=== PATIENT | female | born 1965 | race Caucasian/White ===

== ENCOUNTER 2020-04-25 11:47 | Emergency (ER) | payer BC, SELFPAY ==
[2020-04-25 12:01] VITALS: BP 149/90; PULSE 72; RESP 18; TEMP 37; O2SAT 94
--- NOTE | 2020-04-25 12:07 | ED.SKABFB ---
HPI - Skin/Abscess/Foreign Bdy General Chief complaint: Skin/Abscess/Foreign Body Stated complaint: insect bite Time Seen by Provider: 04/25/20 12:07 Source: patient and family Mode of arrival: ambulatory Limitations: no limitations History of Present Illness HPI narrative: This is a 54 years old female presented to the office for an evaluation of possible infected insect bite on her left thumb. She was outside and felt a bite on her finger but she did not see it. She has stretched it and noticed it blistering today. It also produces yellow drainage. She is diabetic. No treatment prior to arrival. Td is up-to-date Related Data Home Medications Medication Instructions Recorded Confirmed atorvastatin [Lipitor] 40 mg PO DAILY 04/25/20 04/25/20 lisinopril-hydrochlorothiazide 1 tablet PO DAILY 04/25/20 04/25/20 [Zestoretic] metformin [Glucophage] 500 mg PO BID 04/25/20 04/25/20 Allergies Allergy/AdvReac Type Severity Reaction Status Date / Time No Known Allergies Allergy Verified 04/25/20 12:08 Review of Systems Review of Systems: Narrative: CONSTITUTIONAL: Denies fever or feeling ill CARDIOVASCULAR: Denies chest pain RESPIRATORY: Denies dyspnea GASTROINTESTINAL: Denies abdominal pain, nausea, vomiting SKIN: Reports blister on her left thumb with redness, warmth and pain MUSCULOSKELETAL: Denies any other extremities pain NEUROLOGIC: Denies lightheaded/numbness PMFSH Past Medical History Medical History (Updated 04/25/20 @ 12:18 by MALATHI Hernandez) Diabetes mellitus, type II HLD (hyperlipidemia) HTN (hypertension) Social History Social History (Updated 04/25/20 @ 12:07 by MALATHI Hernandez) Smoking status: Current every day smoker Gender identity (if verbalized by the patient): Female Comments At time of signature, I agree with nursing past medical, surgical, social and family history. There is no relevant family history pertinent to the presenting complaint. Exam Narrative: Exam Narrative: GENERAL: This is a well-nourished, well-developed patient, in no apparent distress. CARDIOVASCULAR: Regular rate and rhythm without murmurs, gallops, or rubs. RESPIRATORY: Clear to auscultation. Breath sounds equal bilaterally. No wheezes, rales, or rhonchi. GASTROINTESTINAL: Abdomen soft, non-tender, nondistended. Bowel sounds are active. No hepato-splenomegaly, or palpable masses. No guarding. SKIN: warm, intact with no suspicious lesions or rash, good texture and turgor. NEURO: awake, alert, and oriented to person, place and time. There were no obvious focal neurologic abnormalities. Steady gait EXTREMITIES: left dorsal at DIP of phalange noted blister ~1.5cm round with generalize erythema and edematous down her hand. Radius pulse intact. Wound cleaned and dress with neosporin, gauze and tape until she gets home; then I told her to remove it. [place] Coma Scale Eye Opening: Spontaneous 4 Laura Coma Scale Motor: Obeys Commands 6 Laura Coma Scale Verbal: Oriented 5 Course Vital Signs Vital signs: Vital Signs Temperature 98.6 F 04/25/20 12:01 Pulse Rate 72 04/25/20 12:01 Respiratory Rate 18 04/25/20 12:01 Blood Pressure 149/90 H 04/25/20 12:01 Pulse Oximetry 94 04/25/20 12:01 Temperature 98.6 F 04/25/20 12:01 Pulse Rate 72 04/25/20 12:01 Respiratory Rate 18 04/25/20 12:01 Blood Pressure 149/90 H 04/25/20 12:01 Pulse Oximetry 94 04/25/20 12:01 MDM - Skin/Abscess/Foreign Bdy MDM Narrative Medical decision making narrative: Elevated BP noted: I recommend the patient call the primary care provider listed on their discharge instructions this week to arrange follow-up to recheck her blood pressure in 2 week. Discharge instructions reviewed with patient, as well as provided in writing per nursing staff. The instructions also include specific and strict return/GO TO THE ER as well as f/u information. All questions have been answered, and the patient d
== END 2020-04-25 12:21 | disposition home or self-care (01) ==
PROVIDERS: Emergency Provider Nurse Practitioner
DX: S60.362A Insect bite (nonvenomous) of left thumb, initial encounter (principal); E11.9 Type 2 diabetes mellitus without complications; E78.5 Hyperlipidemia, unspecified; I10 Essential (primary) hypertension; F17.200 Nicotine dependence, unspecified, uncomplicated; Z79.84 Long term (current) use of oral hypoglycemic drugs; W57.XXXA Bitten or stung by nonvenomous insect and other nonvenomous arthropods, initial encounter
CPT/HCPCS: 99213; G0463

== ENCOUNTER 2021-03-05 13:52 | Emergency (ER) | payer BC, SELFPAY ==
--- NOTE | 2021-03-05 14:04 | ED.SKABFB ---
HPI - Skin/Abscess/Foreign Bdy General Chief complaint: Skin/Abscess/Foreign Body Stated complaint: boil on back Time Seen by Provider: 03/05/21 14:25 Source: patient and RN notes reviewed Mode of arrival: ambulatory Limitations: no limitations History of Present Illness HPI narrative: 55-year-old female presents concern for possible boil on her left shoulder. Reports she had a small painless bump for several months, however over the last several days the area has become larger, red, swollen, tender. She denies any intervention. She denies any general malaise, fever, body aches. Denies any drainage from the area. MD complaint: abscess/boil Related Data Home Medications Medication Instructions Recorded Confirmed atorvastatin [Lipitor] 40 mg PO DAILY 04/25/20 04/25/20 lisinopril-hydrochlorothiazide 1 tablet PO DAILY 04/25/20 04/25/20 [Zestoretic] metformin [Glucophage] 500 mg PO BID 04/25/20 04/25/20 ergocalciferol (vitamin D2) 1,250 mcg PO WEEKLY 03/05/21 03/05/21 [Vitamin D2] Allergies Allergy/AdvReac Type Severity Reaction Status Date / Time No Known Allergies Allergy Verified 03/05/21 14:10 Review of Systems Review of Systems: Narrative: CONSTITUTIONAL: Denies malaise, chills, sweats, or fever. CARDIOVASCULAR: Denies chest pain, palpitations, or edema. RESPIRATORY: Denies cough or dyspnea. SKIN: Reports red, swollen, painful area on her left shoulder without drainage MUSCULOSKELETAL: Denies back pain or myalgia. All systems reviewed & are unremarkable except as noted in HPI and below PMFSH Past Medical History Medical History (Updated 03/05/21 @ 14:41 by Praveena Garcia NP) Diabetes mellitus, type II HLD (hyperlipidemia) HTN (hypertension) Social History Social History (Updated 04/25/20 @ 12:07 by MALATHI Hernandez) Smoking status: Current every day smoker Gender identity (if verbalized by the patient): Female Comments At time of signature, agree with nursing past medical, surgical, social and family history. There is no relevant family history pertinent to the presenting complaint Exam Narrative: Exam Narrative: GENERAL: Well-appearing, well-nourished, and in no acute distress. HEAD: Normocephalic EYES: PERRLA, conjunctivae clear ENT: Mucous membranes moist. NECK: Supple. CHEST: No respiratory distress. Speaks in full sentences. HEART: Regular rate and rhythm. SKIN: Warm, dry. 6 cm x 4 cm area of induration, erythema, edema, warmth noted to the left shoulder with raised center, not very fluctuant NEURO: Alert and oriented x3. PSYCH: Normal mood and affect Course Course Emergency Course: Patient is aware of diagnosis, understands and agrees to treatment plan. Anticipatory guidance given. Patient agrees to follow-up as directed and is aware of reasons to seek care at the emergency department. Portions of this record may have been created with voice recognition software Vital Signs Vital signs: Vital Signs Temperature 97.7 F 03/05/21 14:15 Pulse Rate 88 03/05/21 14:15 Respiratory Rate 20 03/05/21 14:15 Blood Pressure 151/74 H 03/05/21 14:15 Pulse Oximetry 95 03/05/21 14:15 Temperature 97.7 F 03/05/21 14:15 Pulse Rate 88 03/05/21 14:15 Respiratory Rate 20 03/05/21 14:15 Blood Pressure 151/74 H 03/05/21 14:15 Pulse Oximetry 95 03/05/21 14:15 Reviewed. Procedures Abscess I/D back: Date of Incision: 03/05/21 Time of Incision: 14:41 Side (if applicable): left Local Anesthetic: lidocaine 1% Amount of anesthesia used (mL): 3 Technique: incised with #11 blade Irrigation: Yes Packing used?: iodoform I&D Results: Pus MDM - Skin/Abscess/Foreign Bdy MDM Narrative Medical decision making narrative: Verbal consent were obtained. The indication for the procedure was clinical suspicion for an abscess. The region was anesthetized with 1% with epi. The most fluctuant portion of the abscess was
[2021-03-05 14:15] VITALS: BP 151/74; PULSE 88; RESP 20; TEMP 36.5; O2SAT 95
== END 2021-03-05 15:23 | disposition home or self-care (01) ==
PROVIDERS: Emergency Provider Nurse Practitioner
DX: L02.212 Cutaneous abscess of back [any part, except buttock and flank] (principal); E11.9 Type 2 diabetes mellitus without complications; E78.5 Hyperlipidemia, unspecified; I10 Essential (primary) hypertension
CPT/HCPCS: 10061; 87070; 87075; 87205; 99212; G0463

== ENCOUNTER 2021-08-06 12:53 | Emergency (ER) | payer BC, SELFPAY ==
--- NOTE | ~2021-08-06 | XR_ITS ---
EXAMINATION: XR chest 2V EXAM DATE: 08/06/2021 14:43 INDICATION: Shortness of breath cough. TECHNIQUE: Frontal and lateral projections of the chest obtained and reviewed. There is no prior ashleigh dy for comparison. FINDINGS: The lungs are clear. There are no pleural effusions. There is mild cardiomegaly.. There i s no pneumothorax suspected. The bones and soft tissues are unremarkable. IMPRESSION: Mild cardiomegaly. Reviewed, dictated and finalized at location A. IMPRESSION: Mild cardiomegaly.
[2021-08-06 13:14] VITALS: BP 142/84; PULSE 76; RESP 20; TEMP 36.3; O2SAT 95
--- NOTE | 2021-08-06 14:14 | ED.URI ---
HPI - URI/Sore Throat General Chief Complaint: Upper Respiratory Infection Stated Complaint: sob/cough Time Seen by Provider: 08/06/21 14:14 Source: patient and RN notes reviewed Mode of arrival: ambulatory Limitations: no limitations History of Present Illness HPI Narrative: 55-year-old female with history of 1 pack/day smoking habit, type 2 diabetes, high blood pressure presents with concern for rhinorrhea, cough, shortness of breath. She was not vaccinated for Covid. She denies nausea, vomiting, diarrhea, fever. Reports general malaise, body aches. Denies [id number] intervention. MD elicited complaint: cough Related Data Home Medications Medication Instructions Recorded Confirmed atorvastatin [Lipitor] 40 mg PO DAILY 04/25/20 03/05/21 metformin [Glucophage] 500 mg PO BID 04/25/20 03/05/21 bupropion HCl PO 08/06/21 hydrochlorothiazide 08/06/21 meloxicam 08/06/21 Allergies Allergy/AdvReac Type Severity Reaction Status Date / Time No Known Allergies Allergy Verified 03/05/21 14:10 Review of Systems Review of Systems: CONSTITUTIONAL: Denies malaise, chills, sweats, or fever. EYES: Denies visual changes, redness, or discharge. ENT: Reports rhinorrhea. Denies congestion, sinus pain, otalgia and sore throat. CARDIOVASCULAR: Denies chest pain, palpitations, or edema. RESPIRATORY: Reports cough, dyspnea. GASTROINTESTINAL: Denies abdominal pain, nausea, vomiting, diarrhea SKIN: Denies rash or itching. MUSCULOSKELETAL: Reports myalgia. NEUROLOGIC: Denies headache. All systems reviewed & are unremarkable except as noted in HPI and below PMFSH Past Medical History Medical History (Updated 08/06/21 @ 14:56 by Praveena Garcia NP) Diabetes mellitus, type II HLD (hyperlipidemia) HTN (hypertension) Social History Social History (Updated 04/25/20 @ 12:07 by MALATHI Hernandez) Smoking status: Current every day smoker Gender identity (if verbalized by the patient): Female Comments At time of signature, agree with nursing past medical, surgical, social and family history. There is no relevant family history pertinent to the presenting complaint Exam Narrative: GENERAL: Well-appearing, well-nourished, and in no acute distress. HEAD: Normocephalic EYES: PERRLA, conjunctivae clear ENT: Nares clear, clear discharge. Mucous membranes moist. TM pearly chopra with dull light reflex bilaterally; no tragal tenderness. Oropharynx not erythematous without lesions. Tonsils not enlarged and without exudate, no drooling, no hoarseness, no trismus, uvula midline. NECK: Supple. No lymphadenopathy CHEST: Clear to auscultation, breath sounds equal. No wheezing, rhonchi, rales, or stridor. No respiratory distress, speaks in full sentences. HEART: Regular rate and rhythm. No murmur heard. SKIN: Warm, dry, no rash. NEURO: Alert and oriented x3. PSYCH: Normal mood and affect Course Course Emergency Course: Patient is aware of diagnosis, understands and agrees to treatment plan. Anticipatory guidance given. Patient agrees to follow-up as directed and is aware of reasons to seek care at the emergency department. Portions of this record may have been created with voice recognition software Vital Signs Vital signs: Vital Signs Temperature 97.3 F L 08/06/21 13:14 Pulse Rate 76 08/06/21 13:14 Respiratory Rate 20 08/06/21 13:14 Blood Pressure 142/84 H 08/06/21 13:14 Pulse Oximetry 95 08/06/21 13:14 Temperature 97.3 F L 08/06/21 13:14 Pulse Rate 76 08/06/21 13:14 Respiratory Rate 20 08/06/21 13:14 Blood Pressure 142/84 H 08/06/21 13:14 Pulse Oximetry 95 08/06/21 13:14 Reviewed. Patient has been instructed to follow up with her primary care provider within the next week regarding her elevated blood pressure today. MDM - URI/Sore Throat MDM Narrative Medical decision making narrative: Differential diagnosis considered: Byrd virus, strep pharyngitis, allergic rhinitis, upper respiratory tr
[2021-08-07 20:25] LABS: SARS-CoV-2 RNA PCR Negative
== END 2021-08-06 15:09 | disposition home or self-care (01) ==
PROVIDERS: Emergency Provider Nurse Practitioner
DX: J06.9 Acute upper respiratory infection, unspecified (principal); E11.9 Type 2 diabetes mellitus without complications; E78.5 Hyperlipidemia, unspecified; I10 Essential (primary) hypertension; F17.200 Nicotine dependence, unspecified, uncomplicated; Z20.822 Contact with and (suspected) exposure to COVID-19
CPT/HCPCS: 71046; 87426; 99213; C9803; G0463; U0003; U0005

== ENCOUNTER 2025-03-22 15:20 | Emergency (ER) | payer MEDICARE, SELFPAY ==
[2025-03-22 15:35] VITALS: BP 154/82; PULSE 84; RESP 16; TEMP 36.2; O2SAT 94
--- NOTE | 2025-03-22 15:38 | ED.LOWEXIN ---
HPI - Extremity Injury (Lower) General Chief Complaint: Extremity Injury, Lower Stated Complaint: Left Foot Pain Time Seen by Provider: 03/22/25 15:28 Source: patient Mode of arrival: ambulatory Limitations: no limitations History of Present Illness HPI Narrative: 59 yo F with hx of DM presents with c/o pain, redness, swelling to L toe for the past 2 to 3 days. Concerned for infection. Denies fever. Ambulatory with limp. States her dog jumped off table onto her foot and has also dropped can on foot in grocery store. Not sure if that was before or after pain started. Not concerned for fracture. All systems reviewed and negative except as noted above. Related Data Home Medications ?Medication ?Instructions ?Recorded ?Confirmed ?Last Taken ?Type atorvastatin 40 mg tablet (Lipitor) 40 mg PO DAILY 04/25/20 03/05/21 Unknown History metformin 500 mg tablet 500 mg PO BID 04/25/20 03/05/21 Unknown History (Glucophage) bupropion HCl 150 mg tablet,12 hr PO 08/06/21 Unknown History sustained-release hydrochlorothiazide 25 mg tablet 08/06/21 Unknown History meloxicam 7.5 mg tablet 08/06/21 Unknown History Allergies Allergy/AdvReac Type Severity Reaction Status Date / Time No Known Allergies Allergy Verified 03/22/25 15:39 Review of Systems Review of Systems: CONSTITUTIONAL: Denies fever, chills, or sweats. EYES: Denies visual changes, redness, or discharge. ENT: Denies rhinorrhea, congestion, sore throat, or otalgia. CARDIOVASCULAR: Denies chest pain, palpitations, or edema. RESPIRATORY: Denies cough or dyspnea. GASTROINTESTINAL: Denies abdominal pain, nausea, vomiting, or diarrhea. GENITOURINARY: Denies dysuria or hematuria. SKIN: Denies rash or itching. MUSCULOSKELETAL: Denies back pain, joint pain, or myalgia. Reports pain and swelling to left great toe. NEUROLOGIC: Denies headache, numbness, or weakness. PSYCHIATRIC: Denies anxiety or depression. All other systems reviewed are negative, except as documented in HPI. [facility] Past Medical History Medical History (Updated 03/22/25 @ 15:57 by Perla Cruz NP) HLD (hyperlipidemia) Diabetes mellitus, type II HTN (hypertension) Social History Social History (Updated 04/25/20 @ 12:07 by DILIP Hernandez Smoking status: Current every day smoker Gender identity (if verbalized by the patient): Female Comments At time of signature, agree with nursing past medical, surgical, social and family history. There is no relevant family history pertinent to the presenting complaint. Exam Narrative: GENERAL: This is a well-nourished, well-developed patient, in no apparent distress. HEAD: normocephalic, atraumatic. EYES: PERRL. Sclera clear/white. Vision is grossly intact. EARS: External ears normal NOSE: External nose normal NECK: Neck supple, non-tender without lymphadenopathy, masses or thyromegaly. CARDIOVASCULAR: Regular rate and rhythm without murmurs, gallops, or rubs. RESPIRATORY: Clear to auscultation. Breath sounds equal bilaterally. No wheezes, rales, or rhonchi. SKIN: warm, Dry, intact with no suspicious lesions or rash, good texture and turgor. NEURO: awake, alert, and oriented to person, place and time. There were no obvious focal neurologic abnormalities. EXTREMITIES: Erythema And swelling to distal aspect left great toe with tenderness on exam. no fluctuance concerning for abscess. Toenail intact with no concerns for ingrown toenail. Neurovascularly intact Course Course Level of Care: Express Care Visit Vital Signs Vital signs: Vital Signs Temperature 36.2 C L 03/22/25 15:35 Pulse Rate 84 03/22/25 15:35 Respiratory Rate 16 03/22/25 15:35 Blood Pressure 154/82 H 03/22/25 15:35 Pulse Oximetry 94 03/22/25 15:35 Oxygen Delivery Room Air 03/22/25 15:35 Temperature 36.2 C L 03/22/25 15:35 Pulse Rate 84 03/22/25 15:35 Respiratory Rate 16 03/22/25 15:35 Blood Pressure 154/82 H 03/22/25 15:35 Pulse Oximetry 94 03/22/25 15:35 Oxygen Delivery Room Air 03/22/25 15:35 reviewed MDM - Extremity Injury (Lower) MDM Narrative Medical decision making narrative: erythema, swelling and tenderness to distal aspect left great. Will treat with antibiotic for cellulitis. Patient has no history gout. Recommend follow-up with primary care physician in the next week. Patient is well-appearing, nontoxic. Please be advised this is a medical document. It is intended for [id number] communication. It is written in medical language and may contain unfamiliar abbreviations or verbiage. Medical documents are intended to carry relevant information, facts as evident, and the clinical opinion of the practitioner at the time of the encounter. This report may have been done utilizing a voice recognition system. Attempts have been made to correct errors. However, there may be uncorrected grammatical, spelling, and recognition errors present. The file time of this note does not necessarily represent the time of service. Discharge Plan Discharge Clinical Impression: Cellulitis of great toe of left foot Patient Disposition: Home Condition: Stable Instructions: Antibiotic Form, Cellulitis (ED) Additional Instructions: Take antibiotic as prescribed until gone. Take ibuprofen or Tylenol every 6-8 hours as needed for pain. Elevate when at rest. Follow-up with your primary care physician at next available appointment. Patient Language: Georgian Prescriptions: New cephalexin 500 mg capsule 500 mg PO Q6H 7 Days Qty: 28 0RF No Action bupropion HCl 150 mg tablet sustained-release 12 hr PO meloxicam 7.5 mg tablet hydrochlorothiazide 25 mg tablet albuterol sulfate 90 mcg/actuation HFA aerosol inhaler 2 puff INHALATION QID PRN (Reason: shortness of breath or wheezing) Qty: 8.5 0RF atorvastatin [Lipitor] 40 mg Tablet 40 mg PO DAILY metformin [Glucophage] 500 mg Tablet 500 mg PO BID Follow-up/Referrals: Lelia,Elicia Dacosta MD [Primary Care Provider] - Time of Disposition: 15:59
== END 2025-03-22 16:04 | disposition home or self-care (01) ==
PROVIDERS: Emergency Provider Nurse Practitioner Family; PCP Family Medicine
DX: L03.032 Cellulitis of left toe (principal); F17.200 Nicotine dependence, unspecified, uncomplicated; I10 Essential (primary) hypertension; E11.9 Type 2 diabetes mellitus without complications; Z79.84 Long term (current) use of oral hypoglycemic drugs; E78.5 Hyperlipidemia, unspecified
CPT/HCPCS: 99213; G0463

== ENCOUNTER 2025-05-20 16:20 | Emergency (ER) | payer MEDICARE, SELFPAY ==
--- NOTE | 2025-05-20 16:23 | ED.URI ---
HPI - URI/Sore Throat General Chief Complaint: Dental/Oral Stated Complaint: Toothache,Earache,Runny Nose Time Seen by Provider: 05/20/25 16:25 Source: patient Mode of arrival: ambulatory Limitations: no limitations History of Present Illness HPI Narrative: Marisela is a 59-year-old female patient presenting to the clinic today with complaints of right upper dental pain, bilateral ear pain, cough, feeling feverish, headache, and runny nose x4 days. She reports she has felt feverish but has not checked her temperature. Cough is productive with some yellow phlegm. History of COPD. States she does feel short of breath but nothing more than usual. Oxygen saturations 92% which she states is normal for her. She is a current smoker. Related Data Home Medications ?Medication ?Instructions ?Recorded ?Confirmed ?Last Taken ?Type atorvastatin 40 mg tablet (Lipitor) 40 mg PO DAILY 04/25/20 03/05/21 Unknown History metformin 500 mg tablet 500 mg PO BID 04/25/20 03/05/21 Unknown History (Glucophage) bupropion HCl 150 mg tablet,12 hr PO 08/06/21 Unknown History sustained-release hydrochlorothiazide 25 mg tablet 08/06/21 Unknown History meloxicam 7.5 mg tablet 08/06/21 Unknown History fluticasone fur. 100 mcg-umeclid 1 inh inhalation DAILY 05/20/25 05/20/25 Unknown History 62.5 mcg-vilant 25 mcg inhalat.powder (Trelegy Ellipta) Allergies Allergy/AdvReac Type Severity Reaction Status Date / Time No Known Allergies Allergy Verified 05/20/25 16:39 Review of Systems Review of Systems: Pertinent positives per HPI. Patient denies any rash, visual changes, dizziness, chest pain, palpitations, nausea, vomiting, diarrhea, constipation, abdominal pain, or any urinary issues. [facility] Past Medical History Medical History HLD (hyperlipidemia) Diabetes mellitus, type II HTN (hypertension) Social History Social History Smoking status: Current every day smoker Gender identity (if verbalized by the patient): Female Comments At the time of my signature, I reviewed and agree with the nursing past medical, surgical, social, and family history. There is no relevant family history pertinent to the patient complaint. Exam Narrative: General: Well-developed, well nourished, in no apparent distress Head: Normocephalic, atraumatic Eyes: Pupils equally round and reactive to light bilaterally, EOM intact, sclera and conjunctive clear, no discharge, lids normal Ears: Left TM intact and congested, right TM intact, bulging, red, ear canals clear, no drainage, grossly hearing normal. Nose: Nares patent, clear nasal discharge, moderate inflammation, no sinus tenderness. Mouth: Oral pharynx without lesions or masses, good dentition, MMM. Neck: Supple, trachea midline, no enlargement of anterior or posterior cervical nodes, no thyroid masses or goiter palpable. Cardio: Regular rate and rhythm, s1 and s2 normal, no murmur appreciated. Resp: Lung sounds diminished in the bases, faint scattered rhonchi, no rales, wheezing or rubs Course Course Emergency Course: Portions of this record may have been created with voice recognition software. Level of Care: Express Care Visit Vital Signs Vital signs: Vital Signs Temperature 36.1 C L 05/20/25 16:29 Pulse Rate 80 05/20/25 16:29 Respiratory Rate 16 05/20/25 16:29 Blood Pressure 120/67 05/20/25 16:29 Pulse Oximetry 92 05/20/25 16:29 Oxygen Delivery Room Air 05/20/25 16:29 Temperature 36.1 C L 05/20/25 16:29 Pulse Rate 80 05/20/25 16:29 Respiratory Rate 16 05/20/25 16:29 Blood Pressure 120/67 05/20/25 16:29 Pulse Oximetry 92 05/20/25 16:29 Oxygen Delivery Room Air 05/20/25 16:29 Vital signs reviewed MDM - URI/Sore Throat MDM Narrative Medical decision making narrative: At the time of visit patient is resting comfortably on the exam table. Patient appears to be nontoxic. Plan: I suspect patient has URI with cough and congestion, right otitis media, and dental pain. History of COPD. Will place patient on amoxicillin. Patient to continue use of albuterol inhaler. Supportive measures were discussed with the patient and they voiced understanding discharge instructions and agrees to treatment plan. Return precautions reviewed Differential Diagnosis Differential diagnosis: Likely upper respiratory infection, otitis media, sinusitis, viral infection, bronchitis, influenza, pharyngitis and other (COVID, dental infection, tooth ache, dental caries) Discharge Plan Discharge Clinical Impression: Toothache, Dental caries, Acute right otitis media URI (upper respiratory infection) Qualifiers: URI type: unspecified URI Qualified Code(s): J06.9 - Acute upper respiratory infection, unspecified Patient Disposition: Home Condition: Stable Instructions: Antibiotic Form, Ear Infection (ED), Cold Symptoms (ED), Toothache (ED) Additional Instructions: Take prescription medications only as prescribed-amoxicillin Increase fluids and stay well hydrated Tylenol/motrin for pain/fever Flonase and OTC antihistamines as directed Vicks vapor rub to open sinuses Sinus rinses for congestion Cepacol spray, cough drops, throat lozenges, warm tea with honey/lemon, gargle salt water to soothe throat BRAT diet for diarrhea Clear liquids x 24 hours then advance as tolerated for nausea/vomiting Go to the ED if you develop a worsening in your condition- high fever not controlled by Tylenol or Motrin, dehydration, weakness, lethargy, shortness of breath, or chest pain. Follow up with your PCP in 3-5 days if symptoms persist. Follow-up with your dentist as soon as possible Patient Language: Malaysian Prescriptions: New amoxicillin 875 mg tablet 875 mg PO Q12H 10 Days Qty: 20 0RF No Action bupropion HCl 150 mg tablet sustained-release 12 hr PO meloxicam 7.5 mg tablet hydrochlorothiazide 25 mg tablet albuterol sulfate 90 mcg/actuation HFA aerosol inhaler 2 puff INHALATION QID PRN (Reason: shortness of breath or wheezing) Qty: 8.5 0RF atorvastatin [Lipitor] 40 mg Tablet 40 mg PO DAILY metformin [Glucophage] 500 mg Tablet 500 mg PO BID cephalexin 500 mg capsule 500 mg PO Q6H 7 Days Qty: 28 0RF Follow-up/Referrals: Lelia,Elicia Dacosta MD [Primary Care Provider] - Time of Disposition: 16:35 Quality NIHSS Nursing Documentation ED NIHSS nursing documentation: reviewed/agree
[2025-05-20 16:29] VITALS: BP 120/67; PULSE 80; RESP 16; TEMP 36.1; O2SAT 92
== END 2025-05-20 16:47 | disposition home or self-care (01) ==
PROVIDERS: Emergency Provider Nurse Practitioner Family; PCP Family Medicine
DX: K02.9 Dental caries, unspecified (principal); J06.9 Acute upper respiratory infection, unspecified; H66.91 Otitis media, unspecified, right ear; E78.5 Hyperlipidemia, unspecified; E11.9 Type 2 diabetes mellitus without complications; I10 Essential (primary) hypertension; F17.200 Nicotine dependence, unspecified, uncomplicated
CPT/HCPCS: 99213; G0463